=== PATIENT | male | born 1990 | race American Indian/Alaskan Native ===

== ENCOUNTER 2018-08-23 22:06 | Emergency (ER) | payer OTHER ==
[2018-08-23 22:21] VITALS: BP 112/71
--- NOTE | 2018-08-24 05:49 | Emergency Department Report ---
<ALEXA LOPEZ - Last Filed: 08/24/18 05:47> ED N/V/D HPI - General Chief complaint: Abdominal Pain Stated complaint: STOMACH VIRUS Time Seen by Provider: 08/24/18 05:32 Source: patient Mode of arrival: Ambulatory Limitations: No Limitations - History of Present Illness Initial comments: 28-year-old -[place] male presents emerge department complaining of a one to 2 day history of excessive abdominal bloating, flatulence, and diarrhea off and on after eating out at a local restaurant. He reports no hemoptysis, hematemesis, no hematochezia, no fever, chills, sweats, flank pain, dysuria. MD complaint: nausea, diarrhea Description of Diarrhea: water Location: diffuse Severity: mild - Related Data Previous Rx's Medication Instructions Recorded Last Taken Type Hyoscyamine Subl [Levsin Sl] 0.125 mg SL Q4HR PRN #16 tablet 08/24/18 Unknown Rx Ondansetron [Zofran ODT TAB] 8 mg PO Q12HR #14 tab.rapdis 08/24/18 Unknown Rx Allergies Allergy/AdvReac Type Severity Reaction Status Date / Time No Known Allergies Allergy Verified 08/23/18 22:09 ED Review of Systems Constitutional: denies: chills, fever Eyes: denies: eye pain, eye discharge, vision change ENT: denies: ear pain, throat pain Respiratory: denies: cough, shortness of breath, wheezing Cardiovascular: denies: chest pain, palpitations Endocrine: no symptoms reported Gastrointestinal: nausea, diarrhea. denies: abdominal pain Genitourinary: denies: urgency, dysuria Musculoskeletal: denies: back pain, joint swelling, arthralgia Skin: denies: rash, lesions Neurological: denies: headache, weakness, paresthesias Psychiatric: denies: anxiety, depression Hematological/Lymphatic: denies: easy bleeding, easy bruising ED Past Medical Hx - Past Medical History Previous Medical History?: No - Surgical History Past Surgical History?: No - Social History Smoking Status: Current Every Day Smoker Substance Use Type: None - Medications Home Medications: Home Medications Medication Instructions Recorded Confirmed Last Taken Type Hyoscyamine Subl [Levsin Sl] 0.125 mg SL Q4HR PRN #16 tablet 08/24/18 Unknown Rx Ondansetron [Zofran ODT TAB] 8 mg PO Q12HR #14 tab.rapdis 08/24/18 Unknown Rx ED Physical Exam - General Limitations: No Limitations General appearance: alert, in no apparent distress - Head Head exam: Present: atraumatic, normocephalic - Eye Eye exam: Present: normal appearance, PERRL, EOMI - ENT ENT exam: Present: mucous membranes moist - Neck Neck exam: Present: normal inspection - Respiratory Respiratory exam: Present: normal lung sounds bilaterally. Absent: respiratory distress - Cardiovascular Cardiovascular Exam: Present: regular rate, normal rhythm. Absent: systolic murmur, diastolic murmur, rubs, gallop - GI/Abdominal GI/Abdominal exam: Present: soft, normal bowel sounds - Rectal Rectal exam: Present: deferred - Extremities Exam Extremities exam: Present: normal inspection - Back Exam Back exam: Present: normal inspection - Neurological Exam Neurological exam: Present: alert, oriented X3 - Psychiatric Psychiatric exam: Present: normal affect, normal mood - Skin Skin exam: Present: warm, dry, intact, normal color. Absent: rash ED Disposition Clinical Impression: Abdominal pain Qualifiers: Abdominal location: generalized Qualified Code(s): R10.84 - Generalized abdominal pain Disposition: - TO HOME OR SELFCARE Condition: Stable Instructions: Gastroenteritis (ED), Acute Nausea and Vomiting (ED) Prescriptions: Hyoscyamine Subl [Levsin Sl] 0.125 mg SL Q4HR PRN #16 tablet PRN Reason: Spasms Ondansetron [Zofran ODT TAB] 8 mg PO Q12HR #14 tab.rapdis Referrals: JOAQUINA GORE MD [Primary Care Provider] - 3-5 Days Forms: Work/School Release Form(ED) <RAHEEL VILLARREAL - Last Filed: 08/24/18 06:28> ED Review of Systems ROS: Stated complaint: STOMACH VIRUS Other details as noted in HPI ED Course Vital Signs 08/23/18 08/23/18 22:20 22:27 Temperature 99.6 F 99.6 F Pulse Rate 71 70 Respiratory 18 18 Rate Blood Pressure 112/71 112/71 O2 Sat by Pulse 99 100 Oximetry ED Medical Decision Making - Lab Data Result diagrams: 08/24/18 05:52 08/24/18 05:52 Labs 08/24/18 08/24/18 05:52 05:52 WBC 5.9 RBC 4.55 Hgb 14.8 Hct 44.4 MCV 98 H MCH 33 H MCHC 33 RDW 13.2 Plt Count 249 Sodium 138 Potassium 3.8 Chloride 98.8 Carbon Dioxide 29 Anion Gap 14 BUN 7 L Creatinine 0.9 Estimated GFR > 60 BUN/Creatinine Ratio 8 Glucose 87 Calcium 9.1 Total Bilirubin 0.80 AST 20 ALT 20 Alkaline Phosphatase 62 Total Protein 7.4 Albumin 4.5 Albumin/Globulin Ratio 1.6 - Medical Decision Making Symptoms improved with medications given in the ED abdominal pain now 2/10 patient is tolerating by mouth intake without nausea vomiting DC'd home in stable condition at this time with levsin and Zofran when necessary follow with PCP in 2-3 days given a referral to [facility] 's agreement and understanding of discharge plan. Critical care attestation.: If time is entered above; I have spent that time in minutes in the direct care of this critically ill patient, excluding procedure time. ED Disposition Is pt being admited?: No Does the pt Need Aspirin: No Time of Disposition: 06:28
[2018-08-24 06:02] LABS: Hematocrit 44.4 % (35.5-45.6); Hemoglobin 14.8 gm/dl (11.8-15.2); Mean Corpuscular HGB Conc 33 % (32-34); Mean Corpuscular Volume 98 fl (84-94); Platelet Count 249 K/mm3 (140-440); Red Blood Count 4.55 M/mm3 (3.65-5.03); Red Cell Distribution Width 13.2 % (13.2-15.2)
[2018-08-24 06:20] LABS: Alanine Aminotransferase 20 units/L (7-56); Albumin 4.5 g/dL (3.9-5); BUN/Creatinine Ratio 8; Blood Urea Nitrogen 7 mg/dL (9-20); Calcium 9.1 mg/dL (8.4-10.2); Hemolysis Index 11
== END 2018-08-24 06:48 | disposition home or self-care (01) ==
LOC: ED 22:06
DX: R10.84 Generalized abdominal pain (principal); R11.2 Nausea with vomiting, unspecified; F17.200 Nicotine dependence, unspecified, uncomplicated
CPT/HCPCS: 36415; 80053; 85027; 99283